=== PATIENT | male | born 1990 | race African-American/Black ===

== ENCOUNTER 2019-12-06 00:49 | Emergency (ER) | payer OTHER ==
[~2019-12-06] VITALS: Ht 180.3 cm; Wt 89.8 kg
== END 2019-12-06 03:37 | disposition home or self-care (01) ==
LOC: ER 00:49
DX: B34.9 Viral infection, unspecified (principal); R50.9 Fever, unspecified; Z03.818 Encounter for observation for suspected exposure to other biological agents ruled out